=== PATIENT | female | born 1960 | race Caucasian/White ===

== ENCOUNTER 2018-09-26 10:51 | Emergency (ER) | payer MEDICAID ==
[~2018-09-26] VITALS: Ht 152.4 cm; Wt 63.5 kg
--- NOTE | 2018-09-26 10:53 | NUR ---
PATIENT AMBULATED TO BED 2
[2018-09-26 10:59] VITALS: BP 137/80
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
[2018-09-26] MEDS ORDERED: LIDOCAINE 1% 500 MG/50 ML VIAL INJ SCH (11:20)
[2018-09-26] MEDS ORDERED: MORPHINE SULFATE 4 MG/ML SYR IM ONE (11:20)
[2018-09-26] MEDS ORDERED: ONDANSETRON 4 MG ODT PO ONE (11:20)
[2018-09-26] MEDS ORDERED: LIDOCAINE MPF 1% - 5 mL VIAL 5 ML ONE (11:33)
--- NOTE | 2018-09-26 12:09 | NUR ---
DR LAZO AT BEDSIDE. PT TOLERATED STICHES ON RT FOREARM.
[2018-09-26 12:49] VITALS: BP 125/79
--- NOTE | 2018-09-26 12:50 | NUR ---
Patient discharged with v/s stable. Written and verbal after care instructions given and explained. Patient alert, oriented and verbalized understanding of instructions. Ambulatory with steady gait. All questions addressed prior to discharge. ID band removed. Patient advised to follow up with PMD. Rx of Augmentin and Haynes given. Patient educated on indication of medication including possible reaction and side effects. Opportunity to ask questions provided and answered. Pt states she is having 10/10 pain and talking and laughing with her sister at bedside.
== END 2018-09-26 12:50 | disposition home or self-care (01) ==
LOC: MED 10:51
DX: S51.811A Laceration without foreign body of right forearm, initial encounter (principal); W54.0XXA Bitten by dog, initial encounter; Y93.01 Activity, walking, marching and hiking; Y92.89 Other specified places as the place of occurrence of the external cause; Y99.8 Other external cause status
CPT/HCPCS: 12002; 73090; 90471; 90715; 96372; 99283; J2001; J2270; Q0092; Q0162